=== PATIENT | female | born 1965 | race Caucasian/White ===

== ENCOUNTER → 2022-05-27 13:08 | Outpatient (CLI) | payer OTHER, SELFPAY ==
--- NOTE | ~2022-05-27 | XR_ITS ---
EXAM: XR knee RT 2V DATE: 05/27/2022 13:32 HISTORY: PT STATES SHE HAS A MENISCUS TEAR AFTER TWISTING INJURY . COMPARISON: None available. FINDINGS: Normal mineralization. No fracture or dislocation. No lytic or blastic lesion. Joint space s are maintained. No erosion or periosteal change. Moderate volume joint fluid. Soft tissues within n ormal limits. IMPRESSION: No acute osseous finding in the right knee. Moderate right knee joint joint effusion. Reviewed, dictated and finalized at location K. IMPRESSION: No acute osseous finding in the right knee. Moderate right knee hiral nt joint effusion.
== END ==
PROVIDERS: PCP Physician Assistant; Visit Provider Physician Assistant
DX: M25.561 Pain in right knee (principal); M25.461 Effusion, right knee
CPT/HCPCS: 73560